=== PATIENT | male | born 1995 | race Caucasian/White ===

== ENCOUNTER 2017-08-23 11:37 | Emergency (ER) | payer OTHER ==
[~2017-08-23] VITALS: Ht 182.9 cm; Wt 95.2 kg
[~2017-08-23 11:37] MED LIST: AMOXICILLIN500 MG PO; CITALOPRAM HBR40 MG PO; OMEPRAZOLE20 MG PO
[2017-08-23] MEDS ORDERED: BUSPIRONE HCL10 MG PO (11:45)
[2017-08-23] MEDS ORDERED: BACLOFEN10 MG PO (12:09)
[2017-08-23] MEDS ORDERED: KETOROLAC TROME10 MG PO (12:09)
== END 2017-08-23 12:19 | disposition home or self-care (01) ==
LOC: ED 11:37
DX: S29.012A Strain of muscle and tendon of back wall of thorax, initial encounter (principal); F32.9 Major depressive disorder, single episode, unspecified; F41.9 Anxiety disorder, unspecified; Z79.899 Other long term (current) drug therapy; X50.0XXA Overexertion from strenuous movement or load, initial encounter
CPT/HCPCS: 99283

== ENCOUNTER 2024-08-03 00:17 | Emergency (ER) | payer SELFPAY ==
[~2024-08-03] VITALS: Ht 182.9 cm; Wt 11.3 kg
[~2024-08-03 00:17] MED LIST changes: +BACLOFEN10 MG PO; +BUSPIRONE HCL10 MG PO; +KETOROLAC TROME10 MG PO
[2024-08-03] MEDS ORDERED: AMOX TR-K CLV1 EAC1 PO (00:54)
[2024-08-03 00:56] VITALS: BP 150/101
[2024-08-03] MEDS ORDERED: DIPHTH,PERTUSS(ACELL),TET VAC 0.5 ML SYRINGE IM ONE (01:00)
[2024-08-03] MEDS ORDERED: AMOXICILLIN/CLAVULANATE K 875 MG HOME.PACK PO ONE (01:00)
== END 2024-08-03 01:25 | disposition home or self-care (01) ==
LOC: ED 00:17
DX: S61.251A Open bite of left index finger without damage to nail, initial encounter (principal); W55.01XA Bitten by cat, initial encounter
CPT/HCPCS: 90471; 90715; 99283-25